=== PATIENT | male | born 1955 ===

== ENCOUNTER 2018-04-26 06:02 | Day surgery (SDC) | payer BC ==
[2018-04-26] VITALS (10 sets, daily range): BP systolic 105–130; BP diastolic 69–80
[~2018-04-26] VITALS: Ht 177.8 cm; Wt 90.7 kg
--- NOTE | 2018-04-26 06:50 | NUR ---
IV LR WAS STARTED BY LAQUITA CARPENTEROPS RN. NO S/S OF INFILTRATION.
[2018-04-26] MEDS ORDERED: NKM (06:51)
[2018-04-26] MEDS ORDERED: LR 1000ml 1,000 ML IVLG SCH ×2 (06:54→07:00)
--- NOTE | 2018-04-26 06:58 | Anethesia Preoperative Eval ---
Anesthesia Pre-op PMH/ROS General Date of Evaluation: Apr 26, 2018 Time of Evaluation: 06:56 Anesthesiologist: may ASA Score: ASA 2 Mallampati Score Class I : Soft palate, uvula, fauces, pillars visible Class II: Soft palate, uvula, fauces visible Class III: Soft palate, base of uvula visible Class IV: Only hard plate visible Mallampati Classification: Class II Surgeon: joan Diagnosis: abdominal pain, colon screening Surgical Procedure: egd/colonoscopy Anesthesia History: none Social History: smoking - nonsmoker Family History: no anesthesia problems Allergies: Coded Allergies: No Known Allergies (Unverified , 04/23/18) Medications: see eMAR Patient NPO?: Yes Past Medical History Gastrointestinal/Genitourinary: Reports: other - abdominal pain PSxH Narrative: colonoscopy Anesthesia Pre-op Phys. Exam Physician Exam Last Vital Signs Date Time Temp Pulse Resp B/P (MAP) Pulse Ox O2 Delivery O2 Flow Rate FiO2 04/26/18 06:58 97.6 80 20 130/80 97 Room Air Constitutional: NAD Neurologic: CN 2-12 intact Cardiovascular: RRR Respiratory: CTA Gastrointestinal: S/NT/ND Airway Exam Mallampati Score: Class II MO: full Neck: flexible TMD: 2fb ROM: full Teeth: intact Anesthesia Pre-op A/P Risk Assessment & Plan Assessment: asa2 Plan: mac Status Change Before Surgery: No Pre-Antibiotics Drug: Donna Carver MD Apr 26, 2018 06:58
[2018-04-26] MEDS ORDERED: Midazolam 2mg/2ml Inj IVP PRN (07:00)
[2018-04-26] MEDS ORDERED: Lidocaine 1% MPF 10mg/ml 5ml ONE (07:00)
[2018-04-26] MEDS ORDERED: Propofol 200mg/20ml IV ONE (07:00)
[2018-04-26] MEDS ORDERED: DiphenhydrAMINE 50mg/ml Inj IVP PRN (07:00)
[2018-04-26] MEDS ORDERED: fentaNYL 100 mcg/2 mL IV PRN (07:00)
[2018-04-26] MEDS ORDERED: Atropine Inj 1mg/10ml Syr IV PRN (07:00)
[2018-04-26] MEDS ORDERED: LR 1000ml ONE (07:00)
--- NOTE | 2018-04-26 07:15 | Pre-Procedure Note/Attestation ---
Pre-Procedure Note/Attestation Complete Prior to Procedure Planned Procedure: not applicable Procedure Narrative: EGD/colon Indications for Procedure Pre-Operative Diagnosis: abd pain, screen Attestation I attest that I discussed the nature of the procedure; its benefits; risks and complications; and alternatives (and the risks and benefits of such alternatives ), prior to the procedure, with the patient (or the patient's legal in store representative). I attest that, if there was a reasonable possibility of needing a blood transfusion, the patient (or the patient's legal in store representative) was given the [facility] standardized written summary, pursuant to the [place] [employer] Blood Safety Act ([place] Health and Safety Code # 1645, as amended). I attest that I re-evaluated the patient just prior to the surgery and that there has been no change in the patient's H&P, except as documented below: Alfred Batista MD Apr 26, 2018 07:15
--- NOTE | 2018-04-26 07:15 | Short Stay Surgery H&P ---
History of Present Illness History of Present Illness Chief Complaint see typed H&P HPI David Mason is a 62 year old male who was admitted on for Abdominal Pain, Colonoscopy Screening Patient History Allergies: Coded Allergies: No Known Allergies (Unverified , 04/23/18) Medication History Scheduled No Known Medications* (NKM - No Known Medications*), 0 ., (Reported) Physical Exam Vital Signs Last Vital Signs Date Time Temp Pulse Resp B/P (MAP) Pulse Ox O2 Delivery O2 Flow Rate FiO2 04/26/18 06:58 97.6 80 20 130/80 97 Room Air Plan Attestation Are the patient's medical conditions optimized for surgery? Alfred Batista MD Apr 26, 2018 07:15
--- NOTE | 2018-04-26 09:12 | Endoscopy Procedure Note ---
Endoscopy Procedure Note General Procedures Performed: EGD, colonoscopy Operative Findings/Diagnosis: dim gastic polyps, TV polyp-SN, mild rhoid Specimen: yes Pt Tolerated Procedure Well: Yes Estimated Blood Loss: none Anesthesia Anesthesiologist: John Collins Anesthesia: MAC Medications Medication Given: see anesthesia record Inserted Devices Implant(s) used?: No Quality Quality of Bowel Preparation: Excellent If none of the above apply,why: GI Core Measures 50 yrs or older w/o bx or poly: No 10yrs. F/U not recommended: No If not recommended, why?: Above average risk 10 yrs. F/U needed: No 18 years or older w/prev. colo: Yes <3yrs. since last colonoscopy: No Med reason:<3 yrs.: System Reason:<3 yrs.: Last colonoscopy >= to 3yrs: Yes Alfred Batista MD Apr 26, 2018 09:12
--- NOTE | 2018-04-26 09:15 | Brief Operative Note ---
Immediate Post Operative Note Operative Note Chief Complaint: abd pain, screen Pre-op Diagnosis: abd pain, screen Procedure: esophagogastroduodenoscopy, Screening colon Post-op Diagnosis: TV colon polyp - snare Surgeon: joan Anesthesiologist: John Collins Anesthesia: MAC Specimen: yes Complications: none Condition: stable Fluids: record Estimated Blood Loss: none Drains: none Implant(s) used?: No Alfred Batista MD Apr 26, 2018 09:15
--- NOTE | 2018-04-26 09:41 | Immediate Post-Op Evaluation ---
Immediate Post-Op Evalulation Immediate Post-Op Evalulation Procedure: egd/colonoscopy/bx Date of Evaluation: Apr 26, 2018 Time of Evaluation: 08:12 IV Fluids: 450ml lr Blood Products: none Estimated Blood Loss: negligible Blood Pressure Systolic: 107 Blood Pressure Diastolic: 68 Pulse Rate: 74 Respiratory Rate: 18 O2 Sat by Pulse Oximetry: 100 Temperature (Fahrenheit): 97.2 Pain Score (1-10): 0 Nausea: No Vomiting: No Complications none Patient Status: awake, reacts, patent Hydration Status: adequate Drug: Donna Carver MD Apr 26, 2018 09:41
--- NOTE | 2018-04-26 09:42 | 48 Hour Post Anesthesia Eval ---
Post Anesthesia Evaluation Procedure: egd/colonoscopy/bx Date of Evaluation: Apr 26, 2018 Time of Evaluation: 08:14 Blood Pressure Systolic: 107 0: 69 Pulse Rate: 64 Respiratory Rate: 18 Temperature (Fahrenheit): 97.2 O2 Sat by Pulse Oximetry: 100 Airway: patent Nausea: No Vomiting: No Pain Intensity: 0 Hydration Status: adequate Cardiopulmonary Status: stable Mental Status/LOC: patient returned to baseline Post-Anesthesia Complications: none Follow-up care needed: N/A Donna Okeefe MD Apr 26, 2018 09:42
--- NOTE | 2018-04-26 15:30 | Operative Note - Dictated ---
DATE OF OPERATION: 04/26/2018 GASTROENTEROLOGY PROCEDURE REPORT PROCEDURE: Upper gastrointestinal endoscopy with biopsy as well as colonoscopy with snare polypectomy. SURGEON: Alfred Batista M.D. ANESTHESIA: Please see separate anesthesiologist's notes for details. PRE-ENDOSCOPIC DIAGNOSES: 1. Abdominal pain. 2. Need for screening colonoscopy. POST-ENDOSCOPIC DIAGNOSES: 1. Diminutive polyps in the gastric body, status post sampling of two polyps by biopsy. 2. Status post random biopsies with normal duodenum and antrum. 3. Subcentimeter diminutive polyp in the transverse colon, removed with cold snare polypectomy. 4. Normal terminal ileum to 10 cm. 5. Mild internal hemorrhoids. DESCRIPTION OF PROCEDURE: The procedure, its risks, indications, alternatives, and possible complications including but not limited to bleeding, infection, perforation, , and anesthesia complications were explained to the patient and informed consent was obtained. The patient was then sedated in the left lateral decubitus position. A diagnostic upper endoscope was introduced through the oropharynx and advanced to the duodenum. The endoscope was then gradually withdrawn and mucosa examined carefully. The rectal exam was then done. The colonoscope was introduced into the rectum and advanced to 10 cm into the terminal ileum. The colonoscope was then gradually withdrawn and mucosa examined carefully. Examination of the upper and lower gastrointestinal tract revealed the above findings and the above procedures were performed. There were no complications. All specimens were sent to pathology. The patient was sent to recovery in good condition. COMPLICATIONS: None. RECOMMENDATIONS: 1. Follow up biopsy results. 2. Outpatient followup. 3. Repeat colonoscopy in 5 years. Thank you for asking me to participate in the care of this patient. Alfred Batista M.D. DR: Olaf JOB#: [id number] CC: Alfred Batista M.D.; Fax#: [phone] Maye Underwood M.D.
== END 2018-04-26 10:00 | disposition home or self-care (01) ==
LOC: GAS 06:02
DX: Z12.11 Encounter for screening for malignant neoplasm of colon (principal); D12.3 Benign neoplasm of transverse colon; K64.8 Other hemorrhoids; K29.50 Unspecified chronic gastritis without bleeding; K31.7 Polyp of stomach and duodenum; Z83.3 Family history of diabetes mellitus; Z82.49 Family history of ischemic heart disease and other diseases of the circulatory system; Z80.9 Family history of malignant neoplasm, unspecified
CPT/HCPCS: 43239; 45385; J2704; 94003; 94150